=== PATIENT | male | born 1980 | race Caucasian/White ===

== ENCOUNTER 2021-05-18 09:33 | Emergency (ER) | payer BC ==
[2021-05-18 10:21] LABS: Basophils % 0.3 % (0-1.3); Hematocrit 43.6 % (39.6-49.0); Lymphocytes % 14.9 % (15.3-44.8); RBC Red Blood Cell Count 5.18 M/uL (4.33-5.43)
[2021-05-18 10:24] LABS: Protime INR 1.25
[2021-05-18] MEDS ORDERED: ONDANSETRON 4 MG/2 ML VIAL ONE (10:31)
[2021-05-18] MEDS ORDERED: NA CHLORIDE 0.9% 1,000 ML ONE (10:35)
[2021-05-18 10:39] LABS: ALT/SGPT 39 U/L (12-78); AST/SGOT 18 U/L (15-37); Albumin 3.7 g/dL (3.4-5.0); Alkaline Phosphatase 95 U/L (45-117); BUN Blood Urea Nitrogen 15 mg/dL (7-18); Bicarbonate 24 mmol/L (21-32); Bilirubin Direct 0.1 mg/dL (0-0.2); Bilirubin Total 0.5 mg/dL (0.2-1.0); Creatine Phosphokinase 327 U/L (39-308); Ferritin 398.8 ng/mL (26-388); Glucose Level 89 mg/dL (74-106); Lipase 169 U/L (73-393); Potassium 3.8 mmol/L (3.5-5.1); Protein, Total 7.8 g/dL (6.4-8.2); Sodium Level 137 mmol/L (136-145); Troponin (Emerg Dept Use Only) < 0.02 ng/mL (0.0-0.045)
[2021-05-18 10:40] LABS: CKMB Creatine Kinase MB < 1.0 ng/mL (1.0-3.6)
--- NOTE | 2021-05-18 11:30 | RAD REPORT ---
EXAM DESCRIPTION: Phyllis Weems (2 Views)05/18/2021 11:16 am CLINICAL HISTORY: Shortness of breath COMPARISON: None FINDINGS: The lungs appear clear of acute infiltrate. The heart is normal size IMPRESSION: No acute abnormalities displayed
--- NOTE | 2021-05-18 12:10 | EDPHYS ---
Physician Documentation [facility] Name: Bret Macdonald Age: 41 yrs Sex: Male : 1980 Arrival Date: 05/18/2021 Time: 09:37 Bed 10 Private MD: ED Physician Albert Rodriguez HPI: 05/18 14:22 This 41 yrs old Male presents to ER via Ambulatory with complaints of COVID+, kb Passed Out Prior To Arrival. 14:22 The patient has not experienced similar symptoms in the past. The patient has not kb recently seen a physician. 14:23 The patient has experienced syncope, collapsed. Onset: The symptoms/episode kb began/occurred this morning. Duration: This was a single episode, that lasted an unknown period of time. Context: occurred at home, occurred while the patient was walking, Just prior to the episode the patient experienced nausea, vomiting. Associated injury: The patient did not suffer any apparent associated injury. Associated signs and symptoms: Pertinent positives: nausea, vomiting. Current symptoms: Currently, the patient is not experiencing any symptoms, the patient feels back to baseline, no decreased level of consciousness, no confusion, no dysphasia, no headache, no paralysis, no visual changes. Patient reports he was tested positive for Covid on the 12 of May. He has had shortness of breath and cough worse at night. This morning he walked to the restroom felt nauseated had a episode of vomiting turned around to go back to bed and had a syncopal episode.. Historical: - Allergies: 09:57 No Known Allergies; ss - Home Meds: 09:57 None [Active]; ss - PMHx: 09:57 None; ss - PSHx: 09:57 None; ss - Immunization history:: Client reports having NOT received the Covid vaccine. - Social history:: Smoking status: Patient denies any tobacco usage or history of. ROS: 14:21 Cardiovascular: Negative for chest pain, palpitations, and edema. kb 14:21 Constitutional: Positive for body aches, chills, fatigue, fever, malaise. 14:21 Respiratory: Positive for cough, shortness of breath. 14:21 Abdomen/GI: Positive for nausea and vomiting. 14:21 All other systems are negative. 14:22 Neuro: Positive for syncope. kb Exam: 10:14 ECG was reviewed by the Attending Physician. rn 14:19 Head/Face: Normocephalic, atraumatic. ENT: Moist Mucous membranes Cardiovascular: kb Regular rate and rhythm with a normal S1 and S2. No gallops, murmurs, or rubs. No pulse deficits. Respiratory: Respirations even and unlabored. No increased work of breathing, no retractions or nasal flaring. Abdomen/GI: Soft, non-tender. No distention Skin: Warm, dry with normal turgor. Normal color. MS/ Extremity: Pulses equal, no cyanosis. Neurovascular intact. Full, normal range of motion. Neuro: Awake and alert, GCS 15, oriented to person, place, time, and situation. Moves all extremities. Normal gait. Psych: Awake, alert, with orientation to person, place and time. Behavior, mood, and affect are within normal limits. 14:19 Constitutional: The patient appears alert, awake, pale. Vital Signs: 09:57 BP 127 / 79; Pulse 83; Resp 17; Temp 99.3(TE); Pulse Ox 97% on R/A; Weight 74.84 kg; ss Height 5 ft. 7 in. (170.18 cm); Pain 0/10; 11:46 BP 104 / 62 LA Supine (auto/reg); Pulse 72; kg 11:48 BP 109 / 74 LA Sitting (auto/reg); Pulse 76 LA; kg 11:50 BP 107 / 74 LA Standing (auto/reg); Pulse 78; kg 12:09 BP 107 / 74; Pulse 76; Resp 18; Pulse Ox 99% ; vg1 09:57 Body Mass Index 25.84 (74.84 kg, 170.18 cm) MDM: 10:00 Patient medically screened. kb 12:09 Data reviewed: vital signs, nurses notes. Data reviewed: I have discussed the patient's kb presentation/case with the attending Emergency Department Physician; and as a result, I will discharge patient. Data interpreted: Pulse oximetry: on room air is 97 %. Interpretation: normal. Counseling: I had a detailed discussion with the patient and/or guardian regarding: the historical points, exam findings, and any diagnostic results supporting the discharge/admit diagnosis, lab results, radiology results, the need for outpatient follow up, a family practitioner, to return to the emergency department if symptoms worsen or persist or if there are any questions or concerns that arise at home. Response to treatment: the patient's symptoms have markedly improved after treatment. 14:20 ED course: O2 sat 98-100%. Pt does not meet criteria for monoclonal antibodies. kb Educated to monitor oxygen saturation at home and to return for worsening symptoms, oxygen below 90% or any other concerns. . 05/18 10:00 Order name: Basic Metabolic Panel kb 05/18 10:00 Order name: CBC with Diff; Complete Time: 10:27 kb 05/18 10:00 Order name: CPK; Complete Time: 10:44 kb 05/18 10:00 Order name: Ckmb; Complete Time: 10:44 kb 05/18 10:00 Order name: Hepatic Function; Complete Time: 10:44 kb 05/18 10:00 Order name: Lipase; Complete Time: 10:44 kb 05/18 10:00 Order name: Magnesium; Complete Time: 10:44 kb 05/18 10:00 Order name: Protime (+inr); Complete Time: 10:27 kb 05/18 10:00 Order name: Ptt, Activated; Complete Time: 10:27 kb 05/18 10:00 Order name: Troponin (emerg Dept Use Only); Complete Time: 10:44 kb 05/18 10:01 Order name: Ferritin; Complete Time: 10:44 kb 05/18 10:01 Order name: CRP; Complete Time: 10:44 kb 05/18 10:01 Order name: Basic Metabolic Panel; Complete Time: 10:44 EDMS 05/18 10:28 Order name: Chest Pa And Lat (2 Views) XRAY; Complete Time: 11:31 kb 05/18 10:00 Order name: EKG; Complete Time: 10:01 kb 05/18 10:00 Order name: Cardiac monitoring; Complete Time: 11:55 kb 05/18 10:00 Order name: EKG - Nurse/Tech; Complete Time: 10:15 kb 05/18 10:00 Order name: IV Saline Lock; Complete Time: 10:15 kb 05/18 10:00 Order name: Labs collected and sent; Complete Time: 10:15 kb 05/18 10:00 Order name: NPO; Complete Time: 11:55 kb 05/18 10:00 Order name: O2 Per Protocol; Complete Time: 11:55 kb 05/18 10:00 Order name: O2 Sat Monitoring; Complete Time: 11:55 kb 05/18 10:00 Order name: Orthostatics; Complete Time: 10:15 kb EC:14 Rate is 75 beats/min. Rhythm is regular. QRS [place] is Normal. IN interval is normal. QRS rn interval is normal. QT interval is normal. No Q waves. T waves are Normal. No ST changes noted. Clinical impression: Normal ECG. Interpreted by me. Reviewed by me. Administered Medications: 10:05 Drug: Zofran (Ondansetron) 4 mg Route: IVP; Site: left forearm; ss 11:57 Follow up: Response: No adverse reaction; Nausea is decreased ss 10:05 Drug: NS 0.9% 1000 ml Route: IV; Rate: 1 bolus; Site: left forearm; ss 11:57 Follow up: IV Status: Completed infusion; IV Intake: 1000ml ss Disposition: 18:04 Co-signature as Attending Physician, Albert Rodriguez MD I agree with the assessment and rn plan of care. Attestation: The patient's history, exam findings, diagnostics, and a summary of any interventions or procedures was reviewed in detail with Adela LEES. Disposition Summary: 05/18/21 12:10 Discharge Ordered Location: Home kb Condition: Stable kb Diagnosis - Syncope kb - Coronavirus infection, unspecified kb Followup: kb - With: Emergency Department - When: As needed - Reason: Worsening of condition Followup: kb - With: Private Physician - When: 2 - 3 days - Reason: Recheck today's complaints, Continuance of care, Re-evaluation by your physician Discharge Instructions: - Discharge Summary Sheet kb - Viral Respiratory Infection, Joca-Ol-Wphz kb - COVID-19 kb Forms: - Medication Reconciliation Form kb - Thank You Letter kb - Antibiotic Education kb - Prescription Opioid Use kb Prescriptions: - Zofran 4 mg Oral Tablet - take 1 tablet by ORAL route every 6 hours As needed; 20 tablet; Refills: 0, kb Product Selection Permitted - Tessalon Perles 100 mg Oral Capsule - take 1 capsule by ORAL route every 8 hours As needed; 15 capsule; Refills: 0, kb Product Selection Permitted Signatures: Dispatcher [employer] Adela Amezquita FNP-C FNP-Albert Cates MD MD rn Smirch, Shelby, RN RN ss
--- NOTE | 2021-05-18 12:10 | ER ---
Nurse's Notes [facility] Name: Bret Macdonald Age: 41 yrs Sex: Male : 1980 Arrival Date: 05/18/2021 Time: 09:37 Bed 10 Private MD: Diagnosis: Syncope;Coronavirus infection, unspecified Presentation: 05/18 09:56 Chief complaint: Patient states: "I've been coughing really bad at night because I have ss COVID. It's not getting better, it's getting worse. I was walking out of the bathroom and I just passed out on the floor.". Coronavirus screen: Client presents with at least one sign or symptom that may indicate coronavirus-19. Standard/surgical mask placed on the client. Provider contacted for isolation considerations. Ebola Screen: Patient denies exposure to infectious person. Patient denies travel to an Ebola-affected area in the 21 days before illness onset. Initial Sepsis Screen: Does the patient meet any 2 criteria? No. Patient's initial sepsis screen is negative. Does the patient have a suspected source of infection? No. Patient's initial sepsis screen is negative. Risk Assessment: Do you want to hurt yourself or someone else? Patient reports no desire to harm self or others. Onset of symptoms was May 18, 2021. 09:56 Method Of Arrival: Ambulatory ss 09:56 Acuity: AR 3 ss Historical: - Allergies: 09:57 No Known Allergies; ss - Home Meds: 09:57 None [Active]; ss - PMHx: 09:57 None; ss - PSHx: 09:57 None; ss - Immunization history:: Client reports having NOT received the Covid vaccine. - Social history:: Smoking status: Patient denies any tobacco usage or history of. Screenin:34 Abuse screen: Denies threats or abuse. Nutritional screening: No deficits noted. vg1 Tuberculosis screening: No symptoms or risk factors identified. Fall Risk Fall in past 12 months (25 points). No secondary diagnosis (0 pts). IV access (20 points). Ambulatory Aid- None/Bed Rest/Nurse Assist (0 pts). Gait- Normal/Bed Rest/Wheelchair (0 pts) Mental Status- Oriented to own ability (0 pts). Total Phan Fall Scale indicates No Risk (0-24 pts). Assessment: 11:57 Reassessment: Patient appears in no apparent distress at this time. Patient and/or ss family updated on plan of care and expected duration. Pain level reassessed. Patient is alert, oriented x 3, equal unlabored respirations, skin warm/dry/pink. Patient states feeling better. Patient states symptoms have improved. 12:08 General: Appears in no apparent distress. comfortable, Behavior is calm, cooperative. vg1 Pain: Denies pain. Neuro: Level of Consciousness is awake, alert, obeys commands, Oriented to person, place, time, situation, Reports dizziness. Cardiovascular: Patient's skin is warm and dry. Respiratory: Reports cough that is Airway is patent Respiratory effort is even, unlabored. GI: Reports nausea, vomiting. : No signs and/or symptoms were reported regarding the genitourinary system. EENT: No signs and/or symptoms were reported regarding the EENT system. Derm: Skin is intact, is healthy with good turgor. Musculoskeletal: Circulation, motion, and sensation intact. 12:34 Reassessment: Patient appears in no apparent distress at this time. Patient and/or vg1 family updated on plan of care and expected duration. Pain level reassessed. Patient is alert, oriented x 3, equal unlabored respirations, skin warm/dry/pink. Patient denies pain at this time. Patient states feeling better. Vital Signs: 09:57 BP 127 / 79; Pulse 83; Resp 17; Temp 99.3(TE); Pulse Ox 97% on R/A; Weight 74.84 kg; Height 5 ft. 7 in. (170.18 cm); Pain 0/10; 11:46 BP 104 / 62 LA Supine (auto/reg); Pulse 72; kg 11:48 BP 109 / 74 LA Sitting (auto/reg); Pulse 76 LA; kg 11:50 BP 107 / 74 LA Standing (auto/reg); Pulse 78; kg 12:09 BP 107 / 74; Pulse 76; Resp 18; Pulse Ox 99% ; vg1 09:57 Body Mass Index 25.84 (74.84 kg, 170.18 cm) ED Course: 09:37 Patient arrived in ED. mr 09:51 [facility]ela Ruano [facility]-C [facility] kb 09:51 Albert Rodriguez MD is Attending Physician. kb 09:57 Triage completed. ss 09:57 Arm band placed on right wrist. ss 10:15 EKG done, by ED staff, reviewed by Albert Rodriguez MD. Inserted saline lock: 20 gauge in va left forearm, using aseptic technique. Blood collected. 11:16 Chest Pa And Lat (2 Views) XRAY In Process Unspecified. EDMS 12:05 Mame Zendejas, RN is Primary Nurse. vg1 12:35 Patient has correct armband on for positive identification. Bed in low position. Call vg1 light in reach. Side rails up X 1. 12:35 No provider procedures requiring assistance completed. IV discontinued, intact, vg1 bleeding controlled, No redness/swelling at site. Pressure dressing applied. Administered Medications: 10:05 Drug: Zofran (Ondansetron) 4 mg Route: IVP; Site: left forearm; ss 11:57 Follow up: Response: No adverse reaction; Nausea is decreased ss 10:05 Drug: NS 0.9% 1000 ml Route: IV; Rate: 1 bolus; Site: left forearm; ss 11:57 Follow up: IV Status: Completed infusion; IV Intake: 1000ml ss Intake: 11:57 IV: 1000ml; Total: 1000ml. ss Outcome: 12:10 Discharge ordered by . kb 12:35 Discharged to home ambulatory. vg1 12:35 Condition: stable 12:35 Discharge instructions given to patient, Instructed on discharge instructions, follow up and referral plans. medication usage, Demonstrated understanding of instructions, follow-up care, medications, Prescriptions given X 2. 12:35 Patient left the ED. vg1 Signatures: Dispatcher [employer] EDRI Adela Ruano, PROJECT PROGRAM MANAGER-C PROJECT PROGRAM MANAGER-Amrik Zaira Jolly Ivette Wren, RN RN [facility] Mame Zendejas, RN RN vg1 Candi Chavez, JOSHUA RN kg Corrections: (The following items were deleted from the chart) 11:56 10:05 NS 0.9% 1000 ml IV at 1 bolus in left antecubital ss ss 12:09 12:08 Neuro: Level of Consciousness is awake, alert, obeys commands, Oriented to vg1 person, place, time, situation, vg1
[2021-05-18 12:44] VITALS: BP 107/74
[2021-05-18 12:45] VITALS: O2SAT 99
[2021-05-18 12:55] VITALS: TEMP 97
--- NOTE | 2021-05-19 15:41 | EKG ---
Test Date: 2021-05-18 Test Time: 10:10:46 Data Analysis Intern: MIGUEL MEASUREMENT RESULTS: Intervals: Rate: 75 CA: 140 QRSD: 82 QT: 374 QTc: 417 [place]: P: 58 CA: 140 QRS: 42 T: 40 INTERPRETIVE STATEMENTS: Normal sinus rhythm Normal ECG No previous ECG available for comparison Electronically Signed On 05-19-21 15:37:18 CDT by Henrique Ellington
== END 2021-05-18 12:35 | disposition home or self-care (01) ==
LOC: ER 09:33
DX: U07.1 COVID-19 (principal)
CPT/HCPCS: 96361; 93005; 85025; 80048; 36415; 83735; 82550; 85610; 80076; 85730; 84484; 82553; 82728; 83690; 86140; 71046; 96374; 99284; J7030; J2405

== ENCOUNTER 2021-05-20 16:47 | Emergency (ER) | payer BC ==
[2021-05-20] MEDS ORDERED: ACETAMINOPHEN 500 MG TAB ONE (17:48)
--- NOTE | 2021-05-20 18:30 | RAD REPORT ---
EXAM DESCRIPTION: RAD - Chest Pa And Lat (2 Views) - 05/20/2021 5:57 pm CLINICAL HISTORY: Cough;SOB COMPARISON: Chest Pa And Lat (2 Views) dated 05/18/2021 FINDINGS: Patchy ill-defined airspace opacities in the left mid lung and to lesser extent the lung b ases. The findings are mild. The heart size is within normal limits.No acute osseous abnormality. No significant pleural effusions or pneumothorax. IMPRESSION: Mild patchy airspace disease which is new from 05/18/2021 and concerning for multifocal pneumonia including Covid-19.
[2021-05-20] MEDS ORDERED: METHYLPREDNISOLONE 125 MG INJ ONE (20:26)
--- NOTE | 2021-05-20 20:26 | EDPHYS ---
Physician Documentation [facility] Name: Bret Macdonald Age: 41 yrs Sex: Male : 1980 Arrival Date: 05/20/2021 Time: 16:48 Bed DX1 Private MD: ED Physician Albert Rodriguez HPI: 05/20 20:22 This 41 yrs old Male presents to ER via Ambulatory with complaints of covid + rn SOB. 20:22 The patient or guardian reports cough, that is intermittent, described as moderate. rn Onset: The symptoms/episode began/occurred 8 day(s) ago. Severity of symptoms: At their worst the symptoms were moderate, in the emergency department the symptoms have improved. Modifying factors: The symptoms are alleviated by Prescription cough medication the symptoms are aggravated by nothing. Associated signs and symptoms: Pertinent positives: fever, Cough. The patient has not experienced similar symptoms in the past. The patient has been recently seen by a physician: The patient has been recently seen at the [facility] Emergency Department. Patient reports feels like cough is getting worse. Now day 8 of illness, Covid positive. Used to be smoker for 20 to 30 years. No chronic medical problems or lung or heart problems. Reports seen twice for Covid already, prescribed cough medication which he took prior to arrival and seems to have helped him.. Historical: - Allergies: 17:22 No Known Allergies; sv - Immunization history:: Adult Immunizations unknown. - Family history:: not pertinent. - Social history:: Smoking status: unknown. - Hospitalizations: : No recent hospitalization is reported. ROS: 20:22 Constitutional: Positive for fever and chills Eyes: Negative for injury, pain, redness, rn and discharge, ENT: Negative for injury, pain, and discharge, Neck: Negative for injury, pain, and swelling, Cardiovascular: Negative for chest pain, palpitations, and edema, Respiratory: Positive for cough and shortness of breath Abdomen/GI: Negative for abdominal pain Back: Negative for injury and pain, MS/Extremity: Negative for injury and deformity, Skin: Negative for injury, rash, and discoloration, Neuro: Negative for numbness, tingling, and seizure. 20:22 All other systems are negative. Exam: 20:22 Constitutional: This is a well developed, well nourished patient who is awake, alert, rn and in no acute distress. Head/Face: Normocephalic, atraumatic. Eyes: Pupils equal round and reactive to light, extra-ocular motions intact. Lids and lashes normal. Conjunctiva and sclera are non-icteric and not injected. Cornea within normal limits. Periorbital areas with no swelling, redness, or edema. ENT: No stridor Cardiovascular: Regular rate and rhythm. No pulse deficits. Respiratory: Mild tachypnea, speaking full sentences without retractions. Abdomen/GI: Soft, non-tender Skin: Warm, dry MS/ Extremity: Pulses equal, no cyanosis. Neuro: Awake and alert, GCS 15 Vital Signs: 17:23 BP 118 / 81; Pulse 98; Resp 24; Temp 103.2(O); Pulse Ox 100% on R/A; Weight 74.84 kg; sv Height 5 ft. 7 in. (170.18 cm); 20:08 Temp 98.7(T); zb 17:23 Body Mass Index 25.84 (74.84 kg, 170.18 cm) sv MDM: 19:47 Patient medically screened. rn 20:22 Differential Diagnosis: Bronchitis Upper Respiratory Infection Viral Syndrome Pneumonia rn Other Covid pneumonia. Data reviewed: vital signs, nurses notes, old medical records, radiologic studies, plain films. 20:25 Data interpreted: Pulse oximetry: on room air is 100 %. Interpretation: normal. Test rn interpretation: by ED physician or midlevel provider: plain radiologic studies, Chest x-ray with mild bilateral infiltrates consistent with Covid pneumonia. Counseling: I had a detailed discussion with the patient and/or guardian regarding: the historical points, exam findings, and any diagnostic results supporting the discharge/admit diagnosis, radiology results, the need for outpatient follow up, to return to the emergency department if symptoms worsen or persist or if there are any questions or concerns that arise at home. Special discussion: I discussed with the patient/guardian in detail that at this point there is no indication for admission to the hospital. It is understood, however, that if the symptoms persist or worsen the patient needs to return immediately for re-evaluation. ED course: No oxygen requirement, mild Covid pneumonia on x-ray. Will DC home with steroids and inhaler given previous smoking history. Does not qualify for monoclonal antibodies. Return precautions given. 05/20 17:26 Order name: Chest Pa And Lat (2 Views) XRAY; Complete Time: 19:03 sv Administered Medications: 17:26 Drug: Tylenol 1000 mg Route: PO; sv 20:08 Follow up: Response: No adverse reaction; Temperature is decreased zb 20:08 Drug: SOLU-Medrol (methylPREDNISolone sodium succinate) 125 mg Route: IM; Site: left zb deltoid; 22:30 Follow up: Response: No adverse reaction em Disposition Summary: 05/20/21 20:26 Discharge Ordered Location: Home rn Problem: an ongoing problem rn Symptoms: are unchanged rn Condition: Stable rn Diagnosis - Pneumonia due to SARS-associated coronavirus rn Followup: rn - With: Oren Waite MD - When: As needed - Reason: Recheck today's complaints, Re-evaluation by your physician Discharge Instructions: - Discharge Summary Sheet rn - COVID-19 rn - COVID-19 Frequently Asked Questions rn - 10 Things You Can Do to Manage Your COVID-19 Symptoms at Home - [facility] rn Forms: - Medication Reconciliation Form rn - Thank You Letter rn - Antibiotic yarn weight and strength tester - Prescription Opioid Use rn Prescriptions: - albuterol sulfate 90 mcg/actuation Inhalation HFA aerosol inhaler - inhale 2 puff by INHALATION route every 4 hours; 1 Pump; Refills: 0, Product rn Selection Permitted - Prednisone 20 mg Oral Tablet - take 3 tablets by ORAL route once daily for 5 days; 15 tablet; Refills: 0, rn Product Selection Permitted Signatures: Dispatcher [employer] Noemí Cox RN RN Albert Ashley MD MD rn Brown, Zipporah, RN RN zb Munoz, Edgar RN em
--- NOTE | 2021-05-20 20:26 | ER ---
Nurse's Notes [facility] Name: Bret Macdonald Age: 41 yrs Sex: Male : 1980 Arrival Date: 05/20/2021 Time: 16:48 Bed DX1 Private MD: Diagnosis: Pneumonia due to SARS-associated coronavirus Presentation: 05/20 17:20 Chief complaint: Patient states: cough, SOB x 3 days. Was seen here in the ER and sent sv home with prescription. Has called his PCP and they called in some meds for him as well but the cough has not improved, c/o burning sensation. COVID +05/12/21. Risk Assessment: Do you want to hurt yourself or someone else? Patient reports no desire to harm self or others. Onset of symptoms was April 2021. 17:20 Method Of Arrival: Ambulatory sv 17:20 Acuity: AR 4 sv 17:23 Coronavirus screen: Client denies travel out of the [place] in the last 14 days. Client sv reports previous positive COVID test result. Ebola Screen: No symptoms or risks identified at this time. 17:23 Initial Sepsis Screen: Does the patient meet any 2 criteria? RR > 20 per min. Temp sv <36.0*C (96.8*F)) or > 38.3*C (100.9*F). HR > 90 bpm. Does the patient have a suspected source of infection? Yes: Other: covid. Triage Assessment: 17:26 General: Appears in no apparent distress. uncomfortable, Behavior is calm, cooperative, sv appropriate for age. Neuro: Level of Consciousness is awake, alert, obeys commands, Gait is steady. Respiratory: Respiratory effort is even, unlabored. Historical: - Allergies: 17:22 No Known Allergies; sv - Immunization history:: Adult Immunizations unknown. - Family history:: not pertinent. - Social history:: Smoking status: unknown. - Hospitalizations: : No recent hospitalization is reported. Screenin:38 Abuse screen: Denies threats or abuse. Denies injuries from another. Nutritional zb screening: No deficits noted. Tuberculosis screening: No symptoms or risk factors identified. Fall Risk None identified. Assessment: 20:37 General: Appears uncomfortable, Behavior is calm. Pain: Complains of pain in chest pain zb Pain currently is 0 out of 10 on a pain scale. at worst was 10 out of 10 on a pain scale. Quality of pain is described as burning. Neuro: Level of Consciousness is awake, alert, obeys commands, Oriented to person, place, time, Moves all extremities. Full function. Cardiovascular: Patient's skin is warm and dry. Respiratory: Airway is patent Respiratory effort is even, unlabored, Respiratory pattern is regular, symmetrical, Breath sounds are diminished. GI:. Derm: Skin is intact, is healthy with good turgor, Skin is dry, Skin is normal. Musculoskeletal: Range of motion: intact in all extremities. 20:38 Reassessment: d/c instructions given. patient ambulated out. no questions at this time. zb reminded to follow up w/ test designer. Vital Signs: 17:23 BP 118 / 81; Pulse 98; Resp 24; Temp 103.2(O); Pulse Ox 100% on R/A; Weight 74.84 kg; sv Height 5 ft. 7 in. (170.18 cm); 20:08 Temp 98.7(T); zb 17:23 Body Mass Index 25.84 (74.84 kg, 170.18 cm) sv ED Course: 16:48 Patient arrived in ED. ds1 17:20 Arm band placed on. sv 17:22 Triage completed. sv 17:57 Chest Pa And Lat (2 Views) XRAY In Process Unspecified. EDMS 19:45 Adebayo Carcamo, RN is Primary Nurse. em 19:47 Albert Rodriguez MD is Attending Physician. rn 20:26 Oren Waite MD is Referral Physician. rn 20:38 Patient has correct armband on for positive identification. Bed in low position. Call zb light in reach. Pulse ox on. NIBP on. Door closed. Noise minimized. 20:38 No provider procedures requiring assistance completed. Patient did not have IV access zb during this emergency room visit. Administered Medications: 17:26 Drug: Tylenol 1000 mg Route: PO; sv 20:08 Follow up: Response: No adverse reaction; Temperature is decreased zb 20:08 Drug: SOLU-Medrol (methylPREDNISolone sodium succinate) 125 mg Route: IM; Site: left zb deltoid; 22:30 Follow up: Response: No adverse reaction em Outcome: 20:26 Discharge ordered by . rn 20:38 Discharged to home ambulatory. zb 20:38 Condition: stable 20:38 Discharge instructions given to patient, Instructed on discharge instructions, follow up and referral plans. Demonstrated understanding of instructions, follow-up care, medications, Prescriptions given X 2. 20:40 Patient left the ED. zb Signatures: Dispatcher [employer] Noemí Cox RN RN Adebayo Carcamo RN RN Corine Stovall ds1 Albert Rodriguez MD MD rn Brown, Zipporah, RN RN zgregg Corrections: (The following items were deleted from the chart) 17:23 17:20 Chief complaint: Patient states: cough, SOB x 3 days. Was seen here in the ER and sv sent home with prescription. Has called his PCP and they called in some meds for him as well but the cough has not improved, c/o burning sensation. sv 17:24 17:23 Temp 103.2F Oral; sv sv 17:26 17:23 Pulse 98bpm; Resp 24bpm; Pulse Ox 100% RA; Temp 103.2F Oral; 74.84 kg; Height 5 sv ft. 7 in.; BMI: 25.8; sv
[2021-05-20 20:44] VITALS: BP 118/81; O2SAT 100
[2021-05-20 20:45] VITALS: TEMP 98.7
== END 2021-05-20 20:40 | disposition home or self-care (01) ==
LOC: ER 16:47
DX: U07.1 COVID-19 (principal); J12.82 Pneumonia due to coronavirus disease 2019
CPT/HCPCS: 71046; 96372; 99284; J2930